=== PATIENT | female | born 1965 | race Caucasian/White ===

== ENCOUNTER → 2017-03-26 | Outpatient (CLI) | payer OTHER ==
[~2017-03-26] VITALS: Ht 165.1 cm; Wt 101.2 kg
[~2017-03-26] MED LIST: CENTRUM SILVER1 EAC4 PO; CLARITIN10 MG PO; HYDROCHLOROTHIA25 M2 PO; IRON325 PO; OMEPRAZOLE40 MG PO; ZOLOFT50 MG PO
--- NOTE | ~2017-03-26 | S ---
[facility] [place] [address] SURGICAL PATH RPT PROCEDURE Name: CELSO MCCOY Room #: REG REMY [facility].#: [id number] Admission: 03/26/17 Date of : 61 Discharge: Report #: [id number] Path Case #: [id number] PATHOLOGY REPORT COLLECTION DATE: 03/26/2017 RECEIVED DATE: 03/26/2017 SUBMITTING PHYS: Dr. Jeremy Alvarez OTHER PHYS: Dr. Grace Crowell SPECIMEN(S) RECEIVED: A.Bx distal esophagus R/O Bass's B.Gastric polyp * * * * * * * * * * * * FINAL DIAGNOSIS: A. Esophagus, distal, biopsy: - Squamocolumnar epithelium with mild to moderate chronic submucosal inflammation. - No evidence of intestinal metaplasia. B. Stomach "gastric polyp", biopsy: - Fundic gland polyp. - Mild chronic inflammation. (YADIRA:ny; 03/27/2017) PATHOLOGIST: Sawyer Magallon M.D. REPORT ELECTRONICALLY SIGNED BY: Sawyer Magallon M.D. DATE/TIME: 03/27/2017 13:14 * * * * * * * * * * * * GROSS PATHOLOGY: A. Received in formalin labeled "Celso Mccoy, BX distal esophagus rule out Bass's," are 2 segments of arboleda soft tissue measuring 1.0 x 0.2 x 0.3 cm in aggregate dimensions and ranging from 0.4 to 0.6 cm in maximum dimension. The specimen is submitted entirely in cassette A1. B. Received in formalin labeled "Celso Mccoy, BX polyp gastric," is a segment of arboleda soft tissue measuring 0.4 cm in maximum dimension. The specimen is submitted entirely in cassette B1. (TSD; 03/26/2017) CLINICAL HISTORY: Pre-OP DX: Reflux Post-OP DX: Hiatal hernia, gastric polyp, Schatzki's ring INITIAL CPT CODE(S): [facility] [place] [address] SURGICAL PATH RPT PROCEDURE Name: CELSO MCCOY [facility] [id number] Admission: 03/26/17 Date of : 61 Discharge: Report #: [id number] Path Case #: [id number] A; [id number] B; [id number] Professional services performed by [facility] at [address], [place] [address] Technical services performed by [facility] at [address] [place] [address], [facility] [address] [address]. [facility] [address] [place] [address] PHONE: [phone] DIRECTOR: Gaston Simon M.D. * * * END OF REPORT * * *
== END ==
LOC: GI 07:02
DX: Z12.11 Encounter for screening for malignant neoplasm of colon (principal); K64.8 Other hemorrhoids; K31.7 Polyp of stomach and duodenum; K20.8 Other esophagitis; K22.2 Esophageal obstruction; K44.9 Diaphragmatic hernia without obstruction or gangrene; F32.89 Other specified depressive episodes; I10 Essential (primary) hypertension; K21.9 Gastro-esophageal reflux disease without esophagitis; Z83.71 Family history of colonic polyps; Z79.899 Other long term (current) drug therapy; Z98.890 Other specified postprocedural states
CPT/HCPCS: 62110; 62900